=== PATIENT | female | born 1990 | race Caucasian/White ===

== ENCOUNTER 2018-08-27 12:37 | Emergency (ER) | payer SELFPAY ==
[~2018-08-27] VITALS: Ht 157.5 cm; Wt 80.5 kg
[~2018-08-27 12:37] MED LIST: PREN-385 PO; PREN1KIT74 PO; PRENATAL VIT
[2018-08-27 13:15] VITALS: BP 115/65
--- NOTE | 2018-08-27 13:20 | NUR ---
28 Y/O F W/C/O H/A, LT ARM/EYE PAIN. PERIPHERAL PULSES PRESENT. PT DENIES N/V/D; PERRL, WITH EVEN AND STEADY GAIT; LUNGS CLEAR BL, BREATHING UNLABORED; HR EVEN AND REGULAR, BL PERIPHERAL PULSES PRESENT; PT DENIES ANY FEVER, CP, SOB, OR COUGH AT THIS TIME; PT STATES 9/10 PAIN AT THIS TIME; VSS; PATIENT POSITIONED FOR COMFORT; HOB ELEVATED; BEDRAILS UP X2; BED DOWN.
--- NOTE | 2018-08-27 13:21 | NUR ---
PT AMBULATES TO BED 1 WITH FAMILY
--- NOTE | 2018-08-27 15:35 | NUR ---
PATIENT BACK FROM CT
--- NOTE | 2018-08-27 17:06 | NUR ---
D/C BY DR HANNAH. GIVEN PAPERWORK. AMB WITH STEADY GAIT ACCOMPANIED BY . VSS
[2018-08-27 17:07] VITALS: BP 113/59
== END 2018-08-27 17:06 | disposition home or self-care (01) ==
LOC: MED 12:37
DX: R20.0 Anesthesia of skin (principal); R53.1 Weakness; Z79.899 Other long term (current) drug therapy
CPT/HCPCS: 70450; 72125; 81002; 81025; 99284

== ENCOUNTER 2019-10-20 17:23 | Emergency (ER) | payer OTHER ==
[~2019-10-20] VITALS: Ht 154.9 cm; Wt 82.6 kg
[2019-10-20 17:31] VITALS: BP 121/74
--- NOTE | 2019-10-20 17:38 | NUR ---
AMB TO BED 05 STEADY GAIT
--- NOTE | 2019-10-20 17:45 | NUR ---
29 YO FEMALE CO OF L EYE PAIN AND L EAR PAIN 5D. PT DENIES ANY INJURIES OR FOREIGN BODIES. PT HAS 10/10 PAIN IN EYE AND 8/10 PAIN IN EAR. EYE PAIN IS INCREASED WHEN THE EYE MOVES. EAR PAIN COMES AND GOES. NO MED HX AND NO RX MEDS. PT IS LAYING IN BED WITH ONE RAIL UP AND AT BEDSIDE.
[2019-10-20] MEDS ORDERED: TETRACAINE HCL/PF 0.5% OPTH 4 ML BTL OP ONE (18:35)
[2019-10-20] MEDS ORDERED: FLUORESCEIN OPTH STRIP 1 MG OP ONE (18:35)
[2019-10-20] MEDS ORDERED: TOMOMETER 1 DEV DEV MC ONE (18:41)
--- NOTE | 2019-10-20 19:17 | NUR ---
Pt report given to APRIL LEONARD. Transfer of care at this time.
[2019-10-20 19:31] VITALS: BP 118/74
--- NOTE | 2019-10-20 19:31 | NUR ---
Patient discharged with v/s stable. Written and verbal after care instructions ABOUT EYE CORNEAL ABRASIONS given and explained. Patient alert, oriented and verbalized understanding of instructions. Ambulatory with steady gait. All questions addressed prior to discharge. ID band removed. Patient advised to follow up with PMD. Rx of IBUPROFEN AND GENTAMICIN given. Patient educated on indication of medication including possible reaction and side effects. Opportunity to ask questions provided and answered.
== END 2019-10-20 19:31 | disposition home or self-care (01) ==
LOC: MED 17:23
DX: S05.02XA Injury of conjunctiva and corneal abrasion without foreign body, left eye, initial encounter (principal); R51 Headache; Z79.899 Other long term (current) drug therapy; X58.XXXA Exposure to other specified factors, initial encounter; Y93.89 Activity, other specified; Y92.89 Other specified places as the place of occurrence of the external cause; Y99.8 Other external cause status
CPT/HCPCS: 99283

== ENCOUNTER 2020-12-26 18:28 | Emergency (ER) | payer OTHER ==
[~2020-12-26] VITALS: Ht 157.5 cm; Wt 80.7 kg
[2020-12-26 18:35] VITALS: BP 107/68
--- NOTE | 2020-12-26 19:08 | NUR ---
30 YEAR OLD FEMALE COMPLAINS OF ON/OFF SQUEEZING HEADACHE X 3 WEEKS. PT STATES THAT SHE HAS NAUSEA AND DIZZINESS. PT STATES WHEN HEADACHE OCCURS SHE HAS STIFFNESS IN RIGHT ARM. PT AOX4, BREATHING EVEN AND UNLABORED, SKIN WARM AND DRY. BED IN LOWEST POSITION, LOCKED, BED RAIL UPX1. PMH - DENIES ALLERGIES - NKA
--- NOTE | 2020-12-26 19:23 | NUR ---
Dr. Michelle examining patient.
[2020-12-26] MEDS ORDERED: KETOROLAC 60 MG/2 ML VIAL IM ONE (19:25)
[2020-12-26] MEDS ORDERED: ONDANSETRON 4 MG ODT PO ONE (19:25)
[2020-12-26] MEDS ORDERED: MORPHINE SULFATE 4 MG/ML SYR IM ONE (20:40)
[2020-12-26] MEDS ORDERED: ONDA8TAB87 PO (20:57)
[2020-12-26] MEDS ORDERED: IBUP-2213 PO (20:57)
[2020-12-26] MEDS ORDERED: CIPR500T4 PO (20:57)
[2020-12-26] MEDS ORDERED: ACET-8386 PO (20:57)
[2020-12-26 21:21] VITALS: BP 107/68
--- NOTE | 2020-12-26 21:22 | NUR ---
Patient discharged with v/s stable. Written and verbal after care instructions given and explained. Patient alert, oriented and verbalized understanding of instructions. Ambulatory with steady gait. All questions addressed prior to discharge. ID band removed. Patient advised to follow up with PMD. Rx of CIPROFLOXACIN, IBUPROFEN, ONDANSETRON, HDROCODONE/ACETAMINIPHEN given. Patient educated on indication of medication including possible reaction and side effects. Opportunity to ask questions provided and answered.
== END 2020-12-26 21:22 | disposition home or self-care (01) ==
LOC: MED 18:28
DX: R51.9 Headache, unspecified (principal); N12 Tubulo-interstitial nephritis, not specified as acute or chronic; M79.601 Pain in right arm
CPT/HCPCS: 70450; 81002; 81025; 96372; 99284; J1885; J2270; Q0162

== ENCOUNTER 2021-07-17 19:02 | Emergency (ER) | payer OTHER ==
[~2021-07-17] VITALS: Ht 157.5 cm; Wt 85.7 kg
[~2021-07-17 19:02] MED LIST changes: +ACET-8386 PO; +CIPR500T4 PO; +IBUP-2213 PO; +ONDA8TAB87 PO
[2021-07-17 19:44] VITALS: BP 107/72
--- NOTE | 2021-07-17 19:44 | NUR ---
30 Y/O FEMALE C/O RT EYE PAIN X3DAYS. STATES BLURRY VISION. 10/10 PAIN. TAKING IBUPROFEN WITH NO RELIEF. MEDHX: DANIELEIES ZAINABA
--- NOTE | 2021-07-17 19:44 | NUR ---
PT AMBULATED TO BED
--- NOTE | 2021-07-17 19:53 | NUR ---
PT DOES NOT HAVE CORRECTIVE LENSES WITH HER, UNABLE TO PERFORM EYE EXAM
--- NOTE | 2021-07-17 19:57 | NUR ---
ESPERANZA ROMEO AT BEDSIDE EXAMINING PT
[2021-07-17] MEDS ORDERED: TETRACAINE HCL/PF 0.5% OPTH 4 ML BTL OP ONE (20:05)
[2021-07-17] MEDS ORDERED: FLUORESCEIN OPTH STRIP 1 MG OP ONE (20:05)
[2021-07-17] MEDS ORDERED: ACET-10509 PO (20:29)
[2021-07-17] MEDS ORDERED: OFLOS OP (20:29)
[2021-07-17 20:43] VITALS: BP 107/72
--- NOTE | 2021-07-17 20:44 | NUR ---
Patient discharged with v/s stable. Written and verbal after care instructions given and explained. Patient alert, oriented and verbalized understanding of instructions. Ambulatory with steady gait. All questions addressed prior to discharge. ID band removed. Patient advised to follow up with PMD. Rx of ACETAMINOPHEN AND OCUFLOX given. Patient educated on indication of medication including possible reaction and side effects. Opportunity to ask questions provided and answered.
== END 2021-07-17 20:44 | disposition home or self-care (01) ==
LOC: MED 19:02
DX: H57.11 Ocular pain, right eye (principal); Z79.899 Other long term (current) drug therapy; Z79.1 Long term (current) use of non-steroidal anti-inflammatories (NSAID); Z79.891 Long term (current) use of opiate analgesic; Z79.2 Long term (current) use of antibiotics
CPT/HCPCS: 99283

== ENCOUNTER 2022-04-23 17:39 | Emergency (ER) | payer OTHER ==
[~2022-04-23] VITALS: Ht 157.5 cm; Wt 87.5 kg
[~2022-04-23 17:39] MED LIST changes: +ACET-10509 PO; +OFLOS OP
[2022-04-23 17:51] VITALS: BP 109/59
--- NOTE | 2022-04-23 17:59 | NUR ---
PT WC ASSISTED TO BATHROOM
--- NOTE | 2022-04-23 18:04 | NUR ---
RAD AT BEDSIDE
--- NOTE | 2022-04-23 18:04 | NUR ---
31 Y/O F BIBS W C/O RIGHT ANKLE PAIN. PT STATED [place] AND SHE TRIPPED FEL ON HER R HIP AND TWISTED HER ANKLE. DENIES HITTING HEAD/LOC. PULSES PALPABLE DISTAL, DENIES ANY LOSS OF SENSATION, PT IS ABLE TO MOVE TOES. NKA PMH: DENIES
[2022-04-23] MEDS ORDERED: IBUPROFEN 600 MG TAB PO ONE (18:25)
--- NOTE | 2022-04-23 18:32 | NUR ---
xray at bedside
[2022-04-23] MEDS ORDERED: IBUP-2213 PO (18:52)
--- NOTE | 2022-04-23 19:04 | NUR ---
PER ER MID LEVEL, ANKLE STIRRUP PLACED TO R ANKLE. + CMS AFTER APPLICATION. PT ALSO GIVEN CRUTCHES AND INSTRUCTED ON HOW TO USE THEM
== END 2022-04-23 19:10 | disposition home or self-care (01) ==
LOC: MED 17:39
DX: S93.401A Sprain of unspecified ligament of right ankle, initial encounter (principal); S93.601A Unspecified sprain of right foot, initial encounter; W18.30XA Fall on same level, unspecified, initial encounter; Y93.89 Activity, other specified; Y92.89 Other specified places as the place of occurrence of the external cause; Y99.8 Other external cause status
CPT/HCPCS: 29515; 73610; 73630; 81025; 99284; Q0092

== ENCOUNTER 2022-12-13 18:48 | Emergency (ER) | payer OTHER ==
[~2022-12-13] VITALS: Ht 157.5 cm; Wt 87.5 kg
[~2022-12-13 18:48] MED LIST changes: -ACET-8386 PO; +ACET-8905 PO
[2022-12-13 19:12] VITALS: BP 101/61
--- NOTE | 2022-12-13 19:40 | NUR ---
SEEN AND EXAMINED BY MARY, WITH ORDERS AND CARRIED OUT
[2022-12-13 19:48] LABS: APPEARANCE,URINE CLEAR (CLEAR); BILIRUBIN,URINE NEGATIVE (NEGATIVE); BLOOD, URINE NEGATIVE (NEGATIVE); COLOR,URINE YELLOW (YELLOW); LEUKOCYTE ESTERASE ,URINE NEGATIVE (NEGATIVE); NITRITE, URINE NEGATIVE (NEGATIVE); UGLUCOSE NEGATIVE (NEGATIVE)
[2022-12-13 21:20] VITALS: BP 101/61
--- NOTE | 2022-12-13 21:20 | NUR ---
Patient discharged with v/s stable. Written and verbal after care instructions given and explained. Patient verbalized understanding. Ambulatory with steady gait. All questions addressed prior to discharge. Advised to follow up with PMD.
== END 2022-12-13 21:20 | disposition home or self-care (01) ==
LOC: MED 18:48
DX: O00.01 Abdominal pregnancy with intrauterine pregnancy (principal); O26.891 Other specified pregnancy related conditions, first trimester; M54.50 Low back pain, unspecified; Z3A.12 12 weeks gestation of pregnancy; Z79.899 Other long term (current) drug therapy
CPT/HCPCS: 81003; 81025; 99284

== ENCOUNTER 2023-01-20 18:57 | Emergency (ER) | payer OTHER ==
[~2023-01-20] VITALS: Ht 157.5 cm; Wt 87.1 kg
[2023-01-20 19:11] VITALS: BP 109/66
[2023-01-20 20:10] LABS: BASOPHILS % (AUTO) 0.5 % (0.0-2.0); EOSINOPHILS # (AUTO) 0.1 K/uL (0-0.4); EOSINOPHILS % (AUTO) 1.2 % (0.0-4.0); HEMOGLOBIN 11.8 g/dL (12.0-16.0); LYMPHOCYTES # (AUTO) 2.9 K/uL (2.5-16.5); LYMPHOCYTES % (AUTO) 32.8 % (20.5-51.1); MEAN CORPUSCULAR HEMOGLOBIN 30 pg (27-31); MEAN CORPUSCULAR HGB CONC 34 g/dL (33-37); MEAN CORPUSCULAR VOLUME 87.5 fL (80-94); MONOCYTES # (AUTO) 0.6 K/uL (0.8-1.0); MONOCYTES % (AUTO) 6.6 % (1.7-9.3); NEUTROPHILS # (AUTO) 5.2 K/uL (1.8-7.7); NEUTROPHILS % (AUTO) 58.9 % (42.2-75.2); PLATELET COUNT (AUTO) 273 K/uL (140-450); RED CELL DISTRIBUTION WIDTH 13.6 % (11.6-13.7); WHITE BLOOD COUNT (AUTO) 8.8 K/uL (4.8-10.8)
[2023-01-20 20:27] LABS: ALBUMIN 3.2 g/dL (3.4-5.0); ANION GAP 10.3 (8-16); CARBON DIOXIDE 26.4 mmol/L (21-32); CREATININE 0.6 mg/dL (0.6-1.3); POTASSIUM 3.7 mmol/L (3.5-5.1); TOTAL BILIRUBIN 0.2 mg/dL (0.0-1.0)
[2023-01-20 22:53] LABS: APPEARANCE,URINE CLEAR (CLEAR); BILIRUBIN,URINE NEGATIVE (NEGATIVE); BLOOD, URINE NEGATIVE (NEGATIVE); COLOR,URINE YELLOW (YELLOW); LEUKOCYTE ESTERASE ,URINE NEGATIVE (NEGATIVE); NITRITE, URINE NEGATIVE (NEGATIVE); UGLUCOSE NEGATIVE (NEGATIVE)
[2023-01-20] MEDS ORDERED: ACET-10509 PO (22:58)
[2023-01-20 23:14] VITALS: BP 109/66
== END 2023-01-20 23:15 | disposition home or self-care (01) ==
LOC: MED 18:57
DX: O00.01 Abdominal pregnancy with intrauterine pregnancy (principal); O26.892 Other specified pregnancy related conditions, second trimester; Z3A.17 17 weeks gestation of pregnancy; Z79.899 Other long term (current) drug therapy
CPT/HCPCS: 36415; 76805; 80053; 81003; 81025; 83690; 85025; 99284

== ENCOUNTER 2023-02-14 14:00 | Observation (INO) | payer OTHER ==
[~2023-02-14] VITALS: Ht 157.5 cm; Wt 87.1 kg
[2023-02-14 15:49] LABS: BASOPHILS % (AUTO) 0.3 % (0.0-2.0); EOSINOPHILS % (AUTO) 0.3 % (0.0-4.0); HEMATOCRIT 33.2 % (36-48); HEMOGLOBIN 11.3 g/dL (12.0-16.0); LYMPHOCYTES # (AUTO) 0.4 K/uL (2.5-16.5); LYMPHOCYTES % (AUTO) 5.9 % (20.5-51.1); MEAN CORPUSCULAR HEMOGLOBIN 30 pg (27-31); MEAN CORPUSCULAR HGB CONC 34 g/dL (33-37); MONOCYTES # (AUTO) 0.6 K/uL (0.8-1.0); MONOCYTES % (AUTO) 7.8 % (1.7-9.3); NEUTROPHILS # (AUTO) 6.1 K/uL (1.8-7.7); NEUTROPHILS % (AUTO) 85.7 % (42.2-75.2); PLATELET COUNT (AUTO) 222 K/uL (140-450); RED BLOOD CELL COUNT(AUTO) 3.74 MIL/uL (4.20-5.40); RED CELL DISTRIBUTION WIDTH 13.7 % (11.6-13.7); WHITE BLOOD COUNT (AUTO) 7.1 K/uL (4.8-10.8)
[2023-02-14 15:52] LABS: APPEARANCE,URINE CLEAR (CLEAR); BILIRUBIN,URINE NEGATIVE (NEGATIVE); BLOOD, URINE NEGATIVE (NEGATIVE); COLOR,URINE YELLOW (YELLOW); LEUKOCYTE ESTERASE ,URINE NEGATIVE (NEGATIVE); NITRITE, URINE NEGATIVE (NEGATIVE); UGLUCOSE NEGATIVE (NEGATIVE)
[2023-02-14] MEDS ORDERED: FERR-212 PO (15:52)
--- NOTE | 2023-02-14 15:53 | NUR ---
PATIENT HAS BEEN SCREENED AND CATEGORIZED LOW NUTRITION RISK. PATIENT WILL BE SEEN WITHIN 7 DAYS OF ADMISSION. 02/21/[address]
[2023-02-14 16:14] LABS: ALBUMIN 3.1 g/dL (3.4-5.0); ANION GAP 12.3 (8-16); CARBON DIOXIDE 24.3 mmol/L (21-32); CREATININE 0.5 mg/dL (0.6-1.3); POTASSIUM 3.6 mmol/L (3.5-5.1); TOTAL BILIRUBIN 0.2 mg/dL (0.0-1.0)
[2023-02-14] MEDS ORDERED: APAP/BUTAL/CAFF 325/50/40 MG 1 TAB PO SCH (18:20)
[2023-02-14] MEDS ORDERED: MAGNESIUM OXIDE 400 MG TAB PO ONE (18:35)
[2023-02-14] MEDS ORDERED: MAGNESIUM OXIDE 400 MG TAB PO SCH (18:42)
== END 2023-02-14 19:13 | disposition home or self-care (01) ==
LOC: MLD 14:00
PROVIDERS: ADMIT Obstetrics & Gynecology; ATTEND Obstetrics & Gynecology
DX: O26.892 Other specified pregnancy related conditions, second trimester (principal); R10.9 Unspecified abdominal pain; Z20.822 Contact with and (suspected) exposure to COVID-19; O99.891 Other specified diseases and conditions complicating pregnancy; M54.9 Dorsalgia, unspecified; Z3A.21 21 weeks gestation of pregnancy
CPT/HCPCS: 36415; 76805; 80053; 81003; 85025; 87426; G0378; Q0092

== ENCOUNTER 2023-04-01 09:45 | Observation (INO) | payer OTHER ==
[~2023-04-01] VITALS: Ht 157.5 cm; Wt 88.0 kg
[~2023-04-01 09:45] MED LIST changes: +FERR-212 PO
[2023-04-01 10:23] VITALS: BP 90/53; PULSE 84; TEMP 97.7
[2023-04-01 11:21] LABS: APPEARANCE,URINE SL CLOUDY (CLEAR); BILIRUBIN,URINE NEGATIVE (NEGATIVE); BLOOD, URINE NEGATIVE (NEGATIVE); COLOR,URINE YELLOW (YELLOW); LEUKOCYTE ESTERASE ,URINE NEGATIVE (NEGATIVE); NITRITE, URINE NEGATIVE (NEGATIVE); UGLUCOSE TRACE (NEGATIVE)
[2023-04-01 11:23] LABS: BASOPHILS % (AUTO) 0.4 % (0.0-2.0); EOSINOPHILS # (AUTO) 0.1 K/uL (0-0.4); EOSINOPHILS % (AUTO) 1.2 % (0.0-4.0); HEMATOCRIT 31.2 % (36-48); HEMOGLOBIN 10.4 g/dL (12.0-16.0); LYMPHOCYTES # (AUTO) 1.8 K/uL (2.5-16.5); LYMPHOCYTES % (AUTO) 25.7 % (20.5-51.1); MEAN CORPUSCULAR HEMOGLOBIN 30 pg (27-31); MEAN CORPUSCULAR HGB CONC 34 g/dL (33-37); MEAN CORPUSCULAR VOLUME 90.5 fL (80-94); MONOCYTES # (AUTO) 0.6 K/uL (0.8-1.0); MONOCYTES % (AUTO) 8.5 % (1.7-9.3); NEUTROPHILS # (AUTO) 4.4 K/uL (1.8-7.7); NEUTROPHILS % (AUTO) 64.2 % (42.2-75.2); PLATELET COUNT (AUTO) 262 K/uL (140-450); RED BLOOD CELL COUNT(AUTO) 3.45 MIL/uL (4.20-5.40); RED CELL DISTRIBUTION WIDTH 13.6 % (11.6-13.7); WHITE BLOOD COUNT (AUTO) 6.8 K/uL (4.8-10.8)
[2023-04-01 11:32] LABS: ALBUMIN 2.5 g/dL (3.4-5.0); ANION GAP 13.7 (8-16); CARBON DIOXIDE 22.1 mmol/L (21-32); CREATININE 0.4 mg/dL (0.6-1.3); POTASSIUM 3.8 mmol/L (3.5-5.1); TOTAL BILIRUBIN 0.2 mg/dL (0.0-1.0)
--- NOTE | 2023-04-01 11:40 | NUR ---
PATIENT HAS BEEN SCREENED AND CATEGORIZED LOW NUTRITION RISK. PATIENT WILL BE SEEN WITHIN 7 DAYS OF ADMISSION. 04/08/[address]
[2023-04-01 12:49] LABS: URINE TOTAL PROTEIN 3.8 mg/dL (0-12)
== END 2023-04-01 12:25 | disposition home or self-care (01) ==
LOC: MLD 09:45
PROVIDERS: ADMIT Obstetrics & Gynecology; ATTEND Obstetrics & Gynecology
DX: O36.8130 Decreased fetal movements, third trimester, not applicable or unspecified (principal); Z3A.28 28 weeks gestation of pregnancy
CPT/HCPCS: 36415; 76805; 76819; 80053; 81003; 82570; 85025; 85384; 85610; 85730; G0378; Q0092